=== PATIENT | male | born 1930 | race Caucasian/White ===

== ENCOUNTER 2016-05-22 08:20 | Emergency (ER) | payer MEDICARE, OTHER ==
[2016-05-22 08:26] VITALS: TEMP 97.6; BMI 24.7
--- NOTE | 2016-05-22 09:12 | EDPRACDOC ---
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 PT DENIES LOC, STATES HIS "LEG GAVE WAY" CAUSING HIM TO FALL. Pain Severity: Reports: Moderate Injuries/Pain Location: Reports: head, neck, upper extremity Reason for Fall: Reports: lost balance Loss of Consciousness: no loss of consciousness Modifying Factors: improves with: movement Associated Symptoms (Fall): Reports: headache, neck pain. Denies: abdominal pain, chest pain, confusion, dizziness, lightheadedness, muscle spasms, nausea/ vomiting, ringing in ears, seizures, shortness of breath, slurred speech, trouble walking, vision changes Allergies/Adverse Reactions: Allergies No Known Allergies Allergy (Verified 05/22/16 08:26) Home Medications: Ambulatory Orders Carvedilol [Coreg] 6.25 mg PO BID 11/22/15 Dabigatran Etexilate Mesylate [Pradaxa] 75 mg PO BID 11/22/15 Melatonin/Pyridoxine [Melatonin 5 mg Tablet] 1 tab PO HS 11/22/15 Sertraline HCl [Zoloft] 75 mg PO DAILY 03/14/16 Memantine HCl [Namenda] 10 mg PO BID 04/19/16 Perphenazine [Trilafon] 2 mg PO TID 04/19/16 Rivastigmine Tartrate [Rivastigmine] 1.5 mg PO BID 04/19/16 Magnesium Oxide [Mag-Ox] 400 mg PO TIDWM #100 tablet 04/23/16 Acetaminophen [Tylenol] 650 mg PO QID 05/22/16 Calcium Carbonate/Vitamin D3 [Calcium 500 + Vit D 200 Tablet] 1 tab PO BID 05/22 L. Rhamnosus GG/Inulin [Culturelle Capsule] 1 cap PO DAILY 05/22/16 Metronidazole [Flagyl] 500 mg PO .TID X 14D 05/22/16 Multivitamin W/Iron, Minerals [Multivitamins with Iron] 1 tab PO DAILY 05/22/16 Oxycodone Immediate Release [Oxycodone Immediate Release (OxyIR)] 2.5 mg PO Q8H 05/22/16 Sennosides [Senokot] 2 tab PO QHS 05/22/16 ED Past Medical History - History Reviewed Yes Nurses notes reviewed and agree except as marked - Patient Medical History Neurological History: Reports: Dementia Cardiac History: Reports: Coronary Artery Disease, Atrial Fibrillation, Hypertension, Hypercholesterolemia, Valvular Heart Disease Respiratory History: Reports: COPD, Aspiration Pneumonia, Pneumonia, Emphysema GI/ History: Reports: Renal Failure, Gastroesophageal Reflux, BPH Musculoskeletal History: Reports: Arthritis (OA), Osteoarthritis Psychological History: Reports: Depression Systemic History: Reports: Cancer Surgical History: Reports: Other (penile cancer) - Family Medical History Reports: Hypertension, Cardiac Disorders, Respiratory Disorders - Social Medical History Smoking Status: Never smoker ETOH: None Substance Abuse: None Lives In: [facility] Facility EDM Review of Systems - Review of Systems Constitutional: negative: Chills, Fever Eyes: negative: Blurred Vision, Double Vision Ears: negative: Drainage Throat: negative: Pain Nose: negative: Bleeding Respiratory: negative: Cough, Shortness of Breath, Wheezing Cardiovascular: negative: Chest Pain, Palpitations Gastrointestinal: negative: Diarrhea, Nausea, Pain, Vomiting Genitourinary: negative: Dysuria, Frequency Neurological: Headache. negative: Dizziness, Numbness, Weakness Musculoskeletal: Neck Integumentary: Wound - Physical Exam Constitutional: Alert (Awake), No apparent distress Oriented to: Person, Place Last recorded Vital Signs: Last Vital Signs Temp 97.6 F 05/22/16 08:20 Pulse 80 05/22/16 08:20 Resp 18 05/22/16 08:20 BP 146/69 05/22/16 08:20 Pulse Ox 93 05/22/16 08:20 Oxygen Pulse Oxygen Saturation 93 O2 Device Oxygen Flow Rate Fraction of Inspired Oxygen ( FIO2) - HEENT Head: Laceration (3 CM IRREGULAR LAC MID FOREHEAD, THROUGH SUBCUT TISSUE) Eye Exam: Normal (PERRL, EOMI, Sclera white) Oropharynx: Normal (Pharynx:Moist without exudate,Gums-no swelling) Tympanic Membrane: Normal ENT EAC: Normal TMJ: Normal Nose: Laceration (SUPERFICIAL LAC BRIDGE OF NOSE) Neck: Midline (MILD TENDERNESS) - Respiratory/Cardiovascular Respiratory: Normal - CTA (BBS clear to auscultation without adventitious sounds ) Cardiovascular: Normal (RRR without murmur, gallop or rub) - GI Auscultation: Normal (NABS) Palpation: Normal (Soft,No rebound or guarding, non distended) Tenderness: Non tender Neumann's Sign: Negative - Musculoskeletal Back: Normal (Non-Tender) Extremities: Normal (Normal tone, Pulses 2+ No cyanosis or edema, FROM) - Integumentary Skin: Warm, Dry, Other (SUPERFICIAL SKIN TEAR RIGHT WRIST) Lymphatics: Normal (no adenopathy) - Neurologic Memory Impaired: Normal Motor Function: Normal (Normal tone, Pulses 2+ No cyanosis or edema, FROM) Cranial Nerve: Normal (CN II-X11 intact sensation, strength 5/5) Cerebellar: Normal Mood Description: Normal Perception: Normal ED Injury/Fall Exam - Physical Exam Head Injury: lacerations Extremity Exam: normal range of motion Skin: Warm, Dry - Eli Coma Score Best Eye Response ([place]): (4) open spontaneously Best Verbal Response ([place]): (4) confused conversation Best Motor Response (Eli): (6) obeys commands Eli Total: 14 ED Procedures - Suture/Laceration FOREHEAD Wound Length (cm): 4 Wound's Depth, Shape: linear Wound Explored: clean Irrigated w/ Saline (ccs): 20 Betadine Prep?: Yes Anesthesia: Lidocaine w/ Epi Volume Anesthetic (ccs): 6 Wound Repaired With: Sutures Suture Size/Type: 5:0, nylon Number of Sutures: 12 Layer Closure?: No Sterile Dressing Applied?: Yes - Differential Diagnosis Abrasion, Contusion, Fall, Fracture, ICH - Diagnostic Imaging CT HEAD/C-SPINE Image interpreted by: Radiologist CT HEAD WITHOUT CONTRAST CT CERVICAL SPINE WITHOUT CONTRAST TECHNIQUE: Multidetector CT imaging of the head and cervical spine was performed following the standard protocol without intravenous contrast. Multiplanar CT image reconstructions of the cervical spine were also generated. COMPARISON: 04/19/2016. FINDINGS: The patient was unable to remain motionless for the exam. Small or subtle lesions could be overlooked. CT HEAD FINDINGS No evidence for acute infarction, hemorrhage, mass lesion, hydrocephalus, or extra-axial fluid. Generalized atrophy. Mild to moderate chronic microvascular ischemic change. Calvarium intact. No sinus air-fluid level is detected. There is a large midline forehead scalp hematoma and laceration. No sinus air-fluid level. Except for the scalp hematoma, similar appearance priors. CT CERVICAL SPINE FINDINGS There is no visible cervical spine fracture, traumatic subluxation, prevertebral soft tissue swelling, or intraspinal hematoma. Mild transverse ligament hypertrophy. Degenerative arthrodesis across the C5 through C7 vertebrae anteriorly. Posterior arthrodesis across the C2 and C3 facets. Severe BILATERAL facet arthropathy. No neck masses. Apical pleural thickening. Atherosclerosis. IMPRESSION: No skull fracture or intracranial hemorrhage. No cervical spine fracture or traumatic subluxation. Large midline scalp hematoma in the frontal region with laceration, but no apparent sinus injury. Decision Time to Discharge: 11:26 - Departure Disposition: [facility]-Way Facility Condition: Stable Final Diagnosis: LAC FOREHEAD, 4 CM, SIMPLE Tear of skin of right wrist Qualifiers: Encounter type: initial encounter Qualified Code(s): S61.511A - Laceration without foreign body of right wrist, initial encounter Accidental fall Qualifiers: Encounter type: initial encounter Qualified Code(s): W19.XXXA - Unspecified fall, initial encounter Instructions: Laceration (ED) Education/Counseling Given To: Family Member, Other (SNF STAFF) Education/Counseling Given Regarding: Diagnosis, Treatment, Prognosis, Follow Up Referrals: None,No Provider [Primary Care Provider] - One Week Additional Instructions: Keep wound clean and dry, wash daily with soap and water, cover with antibiotic ointment and clean bandage. Have sutures removed in 10-14 days, use Tylenol or Motrin as needed for pain. Return to the ED for any worsening symptoms or concerns.
[2016-05-22] MEDS ORDERED: Lidocaine 2%-Epinephrine 1:100,000 20ml vial INF ONE (09:13)
--- NOTE | 2016-05-22 10:32 | DIRPT ---
CLINICAL DATA: Found in bathroom floor with laceration to forehead. Fell today. EXAM: CT HEAD WITHOUT CONTRAST CT CERVICAL SPINE WITHOUT CONTRAST TECHNIQUE: Multidetector CT imaging of the head and cervical spine was performed following the standard protocol without intravenous contrast. Multiplanar CT image reconstructions of the cervical spine were also generated. COMPARISON: 04/19/2016. FINDINGS: The patient was unable to remain motionless for the exam. Small or subtle lesions could be overlooked. CT HEAD FINDINGS No evidence for acute infarction, hemorrhage, mass lesion, hydrocephalus, or extra-axial fluid. Generalized atrophy. Mild to moderate chronic microvascular ischemic change. Calvarium intact. No sinus air-fluid level is detected. There is a large midline forehead scalp hematoma and laceration. No sinus air-fluid level. Except for the scalp hematoma, similar appearance priors. CT CERVICAL SPINE FINDINGS There is no visible cervical spine fracture, traumatic subluxation, prevertebral soft tissue swelling, or intraspinal hematoma. Mild transverse ligament hypertrophy. Degenerative arthrodesis across the C5 through C7 vertebrae anteriorly. Posterior arthrodesis across the C2 and C3 facets. Severe BILATERAL facet arthropathy. No neck masses. Apical pleural thickening. Atherosclerosis. IMPRESSION: No skull fracture or intracranial hemorrhage. No cervical spine fracture or traumatic subluxation. Large midline scalp hematoma in the frontal region with laceration, but no apparent sinus injury. Electronically Signed By: Rad Sim M.D. On: 05/22/2016 10:29
[2016-05-22 10:46] VITALS: PULSE 93
[2016-05-22 12:09] VITALS: BP 152/79
== END 2016-05-22 12:10 | disposition home or self-care (01) ==
LOC: ED 08:20
DX: S01.81XA Laceration without foreign body of other part of head, initial encounter (principal); S61.511A Laceration without foreign body of right wrist, initial encounter; W19.XXXA Unspecified fall, initial encounter; F03.90 Unspecified dementia, unspecified severity, without behavioral disturbance, psychotic disturbance, mood disturbance, and anxiety; I10 Essential (primary) hypertension; I48.91 Unspecified atrial fibrillation; E78.00 Pure hypercholesterolemia, unspecified; I25.10 Atherosclerotic heart disease of native coronary artery without angina pectoris; J44.9 Chronic obstructive pulmonary disease, unspecified; K21.9 Gastro-esophageal reflux disease without esophagitis; N40.0 Benign prostatic hyperplasia without lower urinary tract symptoms; Z79.899 Other long term (current) drug therapy
CPT/HCPCS: 12013; 70450; 72125; 99284; J3490; 12002

== ENCOUNTER 2016-06-15 17:00 | Emergency (ER) | payer MEDICARE ==
[2016-06-15 17:10] VITALS: BMI 22.6
--- NOTE | 2016-06-15 18:07 | EDPRACDOC ---
- General Information Chief Complaint: Male Urogenital Problems Stated Complaint: CONFUSION, ?UTI Time Seen by Provider: 06/15/16 17:38 Information Source: Patient Home Medications: Home Medications Carvedilol [Coreg] 6.25 mg PO BID 11/22/15 Dabigatran Etexilate Mesylate [Pradaxa] 75 mg PO BID 11/22/15 Melatonin/Pyridoxine [Melatonin 5 mg Tablet] 1 tab PO HS 11/22/15 Sertraline HCl [Zoloft] 75 mg PO DAILY 03/14/16 Memantine HCl [Namenda] 10 mg PO BID 04/19/16 Perphenazine [Trilafon] 2 mg PO TID 04/19/16 Rivastigmine Tartrate [Rivastigmine] 1.5 mg PO BID 04/19/16 Magnesium Oxide [Mag-Ox] 400 mg PO TIDWM #100 tablet 04/23/16 Acetaminophen [Tylenol] 650 mg PO QID 05/22/16 Calcium Carbonate/Vitamin D3 [Calcium 500 + Vit D 200 Tablet] 1 tab PO BID 05/22 Multivitamin W/Iron, Minerals [Multivitamins with Iron] 1 tab PO DAILY 05/22/16 Oxycodone Immediate Release [Oxycodone Immediate Release (OxyIR)] 2.5 mg PO Q8H 05/22/16 Sennosides [Senokot] 2 tab PO QHS 05/22/16 Quetiapine Fumarate [Seroquel] 200 mg PO QHS #30 tablet 06/15/16 Allergies/Adverse Reactions: Allergies Allergy/AdvReac Type Severity Reaction Status Date / Time No Known Allergies Allergy Verified 06/15/16 17:10 - History of Present 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 PATIENT HAS DEMENTIA BUT SEEMS TO GET WORSE IN THE PRESENCE OF INFECTIONS- USUALLY UTI. NO N/V. PATIENT STATES HE FELL AND STRUCK LEFT KNEE. Symptoms began: Gradually Duration: Since Onset Symptoms Currently: Reports: Still Present Altered Quality: Reports: Decreased Alertness, Confusion Altered Severity: Reports: Mild Recent Symptoms of: Reports: Trauma Relevant History: Reports: Dementia ED Past Medical History - History Reviewed Yes Nurses notes reviewed and agree except as marked Travel Outside of [place] in the Last 3 Months?: No - Patient Medical History Neurological History: Reports: Dementia Cardiac History: Reports: Coronary Artery Disease, Atrial Fibrillation, Hypertension, Hypercholesterolemia, Valvular Heart Disease Respiratory History: Reports: COPD, Aspiration Pneumonia, Pneumonia, Emphysema GI/ History: Reports: Renal Failure, Gastroesophageal Reflux, BPH Musculoskeletal History: Reports: Arthritis (OA), Osteoarthritis Psychological History: Denies: Depression Systemic History: Reports: Cancer Surgical History: Reports: Other (penile cancer) - Family Medical History Reports: Hypertension, Cardiac Disorders, Respiratory Disorders - Social Medical History Smoking Status: Never smoker ETOH: None Substance Abuse: None Lives With: Family Lives In: Home EDM Review of Systems - Review of Systems ROS Negative Except as Marked: Yes All systems reviewed and were negative except as marked Constitutional: Fatigue. negative: Chills, Fever, Loss of Appetite, Weakness Eyes: No Symptoms Reported. negative: Redness, Blurred Vision, Double Vision, Discharge, Pain, Light Sensitive, Photophobia Ears: No Symptoms Reported. negative: Pain, Hearing Loss, Drainage, Ear Pulling Throat: No Symptoms Reported. negative: Pain, Swelling Nose: No Symptoms Reported. negative: Congestion, Bleeding, Discharge, Injection, Swelling, Deformity, Ecchymosis, Tender, Abrasion, Laceration Mouth: No Symptoms Reported. negative: Pain, Drooling Respiratory: No Symptoms Reported. negative: Cough, Brassy Cough, Barky Cough, Shortness of Breath, Wheezing, Hemoptysis Cardiovascular: No Symptoms Reported. negative: Chest Pain, Palpitations, Syncope, Edema, Orthopnea, PND, Skin Mottling, Cyanosis Gastrointestinal: No Symptoms Reported. negative: Pain, Constipation, Nausea, Vomiting, Diarrhea, Melena, Formula Intolerance Genitourinary: No Symptoms Reported. negative: Dysuria, Hematuria, Frequency, Discharge, Bleeding, Testicular Pain, Neurological: No Symptoms Reported. negative: Headache, Dizziness, Seizure, Numbness, Weakness, Speech Difficulty, Gait Difficulty Musculoskeletal: Knee (LEFT). negative: Arm, Ankle, Back, Chestwall, Elbow, Forearm, Femur, Foot, Hand, Hip, Leg, Neck, Pelvis, Ribs, Shoulder, Wrist Integumentary: No Symptoms Reported. negative: Itching, Rash, Bruising, Wound Allergic/Immunologic: No Symptoms Reported. negative: Hives, Itching Hematologic: No Symptoms Reported. negative: Lymphadenopathy, Easy Bruising, Easy Bleeding Endocrine: No Symptoms Reported. negative: Weight Gain, Weight Loss Psychiatric: No Symptoms Reported. negative: Anxiety, Depression, Hallucinations, Insomnia, Suicidal - Physical Exam Constitutional: Alert (Awake), Confused Oriented to: Person Last recorded Vital Signs: Last Vital Signs Temp 98.7 F 06/15/16 17:06 Pulse 93 06/15/16 17:06 Resp 18 06/15/16 17:06 BP 134/79 06/15/16 17:06 Pulse Ox 98 06/15/16 17:06 Oxygen Pulse Oxygen Saturation 98 O2 Device Room Air Oxygen Flow Rate Fraction of Inspired Oxygen ( FIO2) - HEENT Head: Normal ( normocephalic) Eye Exam: Normal (PERRL, EOMI, Sclera white) Oropharynx: Normal (Pharynx:Moist without exudate,Gums-no swelling) Tympanic Membrane: Normal ENT EAC: Normal TMJ: Normal Nose: No Symptoms Reported (septum midline) Neck: Normal (FROM, trachea at midline) - Respiratory/Cardiovascular Respiratory: Normal - CTA (BBS clear to auscultation without adventitious sounds ) Cardiovascular: Normal (RRR without murmur, gallop or rub) - GI Auscultation: Normal (NABS) Palpation: Normal (Soft,No rebound or guarding, non distended) Tenderness: Non tender Neumann's Sign: Negative - Bladder: Normal - Musculoskeletal Back: Normal (Non-Tender) Extremities: Normal (Normal tone, Pulses 2+ No cyanosis or edema, FROM) - Integumentary Skin: Normal, Warm, Dry Lymphatics: Normal (no adenopathy) - Neurologic Memory Impaired: Short-term Motor Function: Normal (Normal tone, Pulses 2+ No cyanosis or edema, FROM) Cranial Nerve: Normal (CN II-X11 intact sensation, strength 5/5) Cerebellar: Normal Mood Description: Normal Perception: Normal - Results 06/15/16 18:32 06/15/16 18:32 - EKG EKG #1 EKG Time: 17:46 -: Yes EKG interpreted by me Rate: bpm: 88 [place]: LAD Rhythm: Afib, PVCs Block: LBBB Hypertrophy: None ST: Normal Decision Time to Discharge: 20:34 - Departure Yes I personally saw and evaluated the patient. Disposition: Home Condition: Good Final Diagnosis: Advanced dementia Education/Counseling Given To: Patient Education/Counseling Given Regarding: Diagnosis, Treatment, Prognosis Referrals: Curtis Mcclendon MD [Primary Care Provider] - One Week Prescriptions: New Quetiapine Fumarate [Seroquel] 200 mg PO QHS #30 tablet No Action Melatonin/Pyridoxine [Melatonin 5 mg Tablet] 1 tab PO HS Carvedilol [Coreg] 6.25 mg PO BID Dabigatran Etexilate Mesylate [Pradaxa] 75 mg PO BID Sertraline HCl [Zoloft] 75 mg PO DAILY Rivastigmine Tartrate [Rivastigmine] 1.5 mg PO BID Memantine HCl [Namenda] 10 mg PO BID Perphenazine [Trilafon] 2 mg PO TID Magnesium Oxide [Mag-Ox] 400 mg PO TIDWM #100 tablet Oxycodone Immediate Release [Oxycodone Immediate Release (OxyIR)] 2.5 mg PO Q8H Calcium Carbonate/Vitamin D3 [Calcium 500 + Vit D 200 Tablet] 1 tab PO BID Acetaminophen [Tylenol] 650 mg PO QID Sennosides [Senokot] 2 tab PO QHS Multivitamin W/Iron, Minerals [Multivitamins with Iron] 1 tab PO DAILY - Physician Consulted Other Time Called: 20:36 Provider Called: Anabel Mcintyre ([facility]) Time [employer]aker Returned Call: 20:37
--- NOTE | 2016-06-15 18:22 | DIRPT ---
CLINICAL DATA: Status post fall today. Left knee pain. Initial encounter. EXAM: LEFT KNEE - COMPLETE 4+ VIEW COMPARISON: Plain films left knee 04/19/2016. FINDINGS: No acute bony or joint abnormality is identified. Advanced tricompartmental osteoarthritis is again seen. Chondrocalcinosis is also again seen. No joint effusion. IMPRESSION: No acute abnormality. Advanced tricompartmental osteoarthritis. Electronically Signed By: Hollis Freeman M.D. On: 06/15/2016 18:20
--- NOTE | 2016-06-15 18:24 | DIRPT ---
CLINICAL DATA: Confusion. EXAM: CHEST 1 VIEW COMPARISON: 04/21/2016. FINDINGS: Low volume film. Basilar atelectasis noted. The cardio pericardial silhouette is enlarged. Cardiomediastinal contours are stable. Old left clavicle fracture again noted. IMPRESSION: Stable. No new or progressive findings. Electronically Signed By: Giancarlo Zee M.D. On: 06/15/2016 18:21
--- NOTE | 2016-06-15 18:26 | DIRPT ---
CLINICAL DATA: Altered mental status. EXAM: CT HEAD WITHOUT CONTRAST TECHNIQUE: Contiguous axial images were obtained from the base of the skull through the vertex without intravenous contrast. COMPARISON: 05/22/2016. FINDINGS: There is no evidence for acute hemorrhage, hydrocephalus, mass lesion, or abnormal extra-axial fluid collection. No definite CT evidence for acute infarction. Diffuse loss of parenchymal volume is consistent with atrophy. Patchy low attenuation in the deep hemispheric and periventricular white matter is nonspecific, but likely reflects chronic microvascular ischemic demyelination. The visualized paranasal sinuses and mastoid air cells are clear. IMPRESSION: Stable. No acute intracranial abnormality. Atrophy with chronic small vessel white matter ischemic disease. Electronically Signed By: Giancarlo Zee M.D. On: 06/15/2016 18:24
[2016-06-15 18:37] LABS: AUTOMATED BASOPHIL 0.3 % (0-2); AUTOMATED EOSINOPHIL 3.9 % (0-5); AUTOMATED LYMPH 28.1 % (17-44); AUTOMATED MONOCYTE 9.8 % (3-10); AUTOMATED NEUTROPHIL 57.9 % (45-76); MPV 8.2 fL (7.4-10.4)
[2016-06-15 18:53] LABS: PARTIAL THROMB. TIME 33.8 SEC (22-35); PT-INR 1.2
[2016-06-15 19:00] LABS: BLOOD UREA NITROGEN 28 MG/DL (9-20); CALC CORRECTED 11.6 MG/DL (8.4-10.2); CALCIUM 10.8 MG/DL (8.4-10.2); CALCULATED OSMOLALITY 273 MOs/Kg (270-290); CHLORIDE 104 mEq/L (98-107); GLUCOSE 110 MG/DL (70-99); SODIUM LEVEL 138 mEq/L (137-146); TOTAL PROTEIN 6.4 G/DL (6.3-8.2)
[2016-06-15 19:39] LABS: LEUKOCYTES/URINE NEG (NEGATIVE); NITRITE/URINE NEG (NEGATIVE); URINE OCCULT BLOOD NEG (NEG/TRACE)
[2016-06-15 21:16] VITALS: BP 126/70; PULSE 86; TEMP 98
== END 2016-06-15 21:11 | disposition home or self-care (01) ==
LOC: ED 17:00
DX: F03.90 Unspecified dementia, unspecified severity, without behavioral disturbance, psychotic disturbance, mood disturbance, and anxiety (principal); S89.92XA Unspecified injury of left lower leg, initial encounter; W19.XXXA Unspecified fall, initial encounter; I25.10 Atherosclerotic heart disease of native coronary artery without angina pectoris; I48.91 Unspecified atrial fibrillation; I10 Essential (primary) hypertension; E78.00 Pure hypercholesterolemia, unspecified; J44.9 Chronic obstructive pulmonary disease, unspecified; K21.9 Gastro-esophageal reflux disease without esophagitis; N40.0 Benign prostatic hyperplasia without lower urinary tract symptoms; Z79.899 Other long term (current) drug therapy
CPT/HCPCS: 36415; 70450; 71010; 80053; 81001; 84484; 85025; 85610; 85730; 87086; 93005; 99284

== ENCOUNTER 2016-06-18 16:38 | Emergency (ER) | payer MEDICARE, MEDICAID ==
[2016-06-18 16:39] VITALS: BMI 22.6
[2016-06-18] MEDS ORDERED: NS 1,000 ML IV ONE (17:08)
[2016-06-18 17:13] VITALS: TEMP 98.4
--- NOTE | 2016-06-18 17:33 | DIRPT ---
CLINICAL DATA: Weakness, low back pain EXAM: PORTABLE CHEST 1 VIEW COMPARISON: 06/15/2016 FINDINGS: Mild patchy right lower lobe opacity, likely atelectasis, less likely pneumonia. No pleural effusion or pneumothorax. The heart is normal in size. IMPRESSION: Mild patchy right lower lobe opacity, likely atelectasis, less likely pneumonia. Electronically Signed By: Miguel Angel Waller M.D. On: 06/18/2016 17:30
[2016-06-18 17:39] LABS: AUTOMATED BASOPHIL 0.3 % (0-2); AUTOMATED EOSINOPHIL 3.3 % (0-5); AUTOMATED LYMPH 17.8 % (17-44); AUTOMATED NEUTROPHIL 71.6 % (45-76); MPV 8.3 fL (7.4-10.4)
[2016-06-18 17:53] LABS: BLOOD UREA NITROGEN 38 MG/DL (9-20); CALC CORRECTED 11.6 MG/DL (8.4-10.2); CALCIUM 10.1 MG/DL (8.4-10.2); CALCULATED OSMOLALITY 276 MOs/Kg (270-290); CHLORIDE 104 mEq/L (98-107); GLUCOSE 120 MG/DL (70-99); PARTIAL THROMB. TIME 30.4 SEC (22-35); PT-INR 1.3; SODIUM LEVEL 138 mEq/L (137-146); TOTAL PROTEIN 5.5 G/DL (6.3-8.2)
[2016-06-18 18:02] LABS: RBC/URINE 0-2 (0-2)
[2016-06-18 18:04] LABS: URINE OCCULT BLOOD NEG (NEG/TRACE)
[2016-06-18 18:05] LABS: LEUKOCYTES/URINE 1+ (NEGATIVE); NITRITE/URINE POS (NEGATIVE)
[2016-06-18] MEDS ORDERED: CEFTRIAXONE 1 GM in D5W 100 ML IV ONE (18:29)
--- NOTE | 2016-06-18 19:38 | EDPRACDOC ---
[id number] Time Seen by Provider: 06/18/16 17:03 Information Source: Patient Mode of Arrival: Ambulance Home Medications: Home Medications Carvedilol [Coreg] 6.25 mg PO BID 11/22/15 Dabigatran Etexilate Mesylate [Pradaxa] 75 mg PO BID 11/22/15 Melatonin/Pyridoxine [Melatonin 5 mg Tablet] 1 tab PO HS 11/22/15 Sertraline HCl [Zoloft] 75 mg PO DAILY 03/14/16 Memantine HCl [Namenda] 10 mg PO BID 04/19/16 Perphenazine [Trilafon] 2 mg PO TID 04/19/16 Rivastigmine Tartrate [Rivastigmine] 1.5 mg PO BID 04/19/16 Magnesium Oxide [Mag-Ox] 400 mg PO TIDWM #100 tablet 04/23/16 Acetaminophen [Tylenol] 650 mg PO QID 05/22/16 Calcium Carbonate/Vitamin D3 [Calcium 500-Vit D3 200 Tablet] 1 tab PO BID Multivitamin W/Iron, Minerals [Multivitamins with Iron] 1 tab PO DAILY 05/22/16 Oxycodone Immediate Release [Oxycodone Immediate Release (OxyIR)] 2.5 mg PO Q8H 05/22/16 Sennosides [Senokot] 2 tab PO QHS 05/22/16 Quetiapine Fumarate [Seroquel] 200 mg PO QHS #30 tablet 06/15/16 Sulfamethoxazole/Trimethoprim [Bactrim Ds Tablet] 1 tab PO BID #14 tab 06/18/16 Allergies/Adverse Reactions: Allergies Allergy/AdvReac Type Severity Reaction Status Date / Time No Known Allergies Allergy Verified 06/15/16 17:10 - 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 HE WAS SEEN 3 DAYS AGO FOR SIMILAR. FAMILY REPORTS HE IS LEANING MORE TO HIS LEFT. ED Past Medical History - History Reviewed Yes Nurses notes reviewed and agree except as marked - Patient Medical History Neurological History: Reports: Dementia Cardiac History: Reports: Coronary Artery Disease, Atrial Fibrillation, Hypertension, Hypercholesterolemia, Valvular Heart Disease Respiratory History: Reports: COPD, Aspiration Pneumonia, Pneumonia, Emphysema GI/ History: Reports: Renal Failure, Gastroesophageal Reflux, BPH Musculoskeletal History: Reports: Arthritis (OA), Osteoarthritis Psychological History: Denies: Depression Systemic History: Reports: Cancer Surgical History: Reports: Other (penile cancer) - Family Medical History Reports: Hypertension, Cardiac Disorders, Respiratory Disorders - Social Medical History Smoking Status: Never smoker Lives With: Family Lives In: Home EDM Review of Systems - Review of Systems ROS Negative Except as Marked: Yes All systems reviewed and were negative except as marked - Physical Exam Last recorded Vital Signs: Last Vital Signs Temp 98.4 F 06/18/16 17:00 Pulse 77 06/18/16 18:58 Resp 20 06/18/16 18:58 BP 121/60 06/18/16 18:58 Pulse Ox 95 06/18/16 18:58 Oxygen Pulse Oxygen Saturation 95 O2 Device Room Air Oxygen Flow Rate Fraction of Inspired Oxygen ( FIO2) - Results 06/18/16 17:20 06/18/16 17:20 WBC 10.6 xk/uL (3.8-10.8) 06/18/16 17:20 RBC 3.46 xM/uL (4.70-6.10) L 06/18/16 17:20 Hgb 10.2 g/dL (14.0-18.0) L D 06/18/16 17:20 Hct 30.6 % (42-52) L 06/18/16 17:20 MCV 88 fL (80-94) 06/18/16 17:20 MCH 29.4 pg (27-32) 06/18/16 17:20 MCHC 33.2 g/dl (33-36) 06/18/16 17:20 RDW 17.0 % (11.5-14.5) H 06/18/16 17:20 Plt Count 154 xk/uL (130-400) 06/18/16 17:20 MPV 8.3 fL (7.4-10.4) 06/18/16 17:20 Neut % (Auto) 71.6 % (45-76) 06/18/16 17:20 Lymph % (Auto) 17.8 % (17-44) 06/18/16 17:20 [place] % (Auto) 7.0 % (3-10) 06/18/16 17:20 Eos % (Auto) 3.3 % (0-5) 06/18/16 17:20 Baso % (Auto) 0.3 % (0-2) 06/18/16 17:20 Absolute Neuts (auto) 7.53 xk/uL (1.7-8.2) 06/18/16 17:20 Absolute Lymphs (auto) 1.80 xk/uL (0.65-4.75) 06/18/16 17:20 PT 13.6 SEC (9.2-11.2) H 06/18/16 17:20 INR 1.3 06/18/16 17:20 APTT 30.4 SEC (22-35) 06/18/16 17:20 Sodium 138 mEq/L (137-146) 06/18/16 17:20 Potassium 3.7 mEq/L (3.5-5.1) 06/18/16 17:20 Chloride 104 mEq/L (98-107) 06/18/16 17:20 Carbon Dioxide 30 mMOL/L (22-33) 06/18/16 17:20 Anion Gap 8 mEq/L (8-16) 06/18/16 17:20 BUN 38 MG/DL (9-20) H 06/18/16 17:20 Creatinine 1.20 MG/DL (0.66-1.25) 06/18/16 17:20 Estimated GFR (MDRD) 58 mL/min (>=60) L 06/18/16 17:20 Glucose 120 MG/DL (70-99) H 06/18/16 17:20 Calculated Osmolality 276 MOs/Kg (270-290) 06/18/16 17:20 Lactic Acid 1.0 mEq/L (0.7-2.1) 06/18/16 17:20 Calcium 10.1 MG/DL (8.4-10.2) 06/18/16 17:20 Corrected Calcium 11.6 MG/DL (8.4-10.2) H 06/18/16 17:20 Total Bilirubin 0.5 MG/DL (0.2-1.3) 06/18/16 17:20 AST 30 IU/L (17-59) 06/18/16 17:20 ALT 37 IU/L (21-72) 06/18/16 17:20 Alkaline Phosphatase 64 IU/L (50-160) 06/18/16 17:20 Creatine Kinase 130 IU/L (55-170) 06/18/16 17:20 Total Protein 5.5 G/DL (6.3-8.2) L 06/18/16 17:20 Albumin 2.5 G/DL (3.5-5.0) L 06/18/16 17:20 Urine Color Dark yellow 06/18/16 17:46 Urine Clarity Clear 06/18/16 17:46 Urine pH 5.0 (5.0-8.0) 06/18/16 17:46 Ur Specific [place] 1.025 (1.003-1.035) 06/18/16 17:46 Urine Protein Neg (NEG/TRACE) 06/18/16 17:46 Urine Glucose (UA) Neg (NEGATIVE) 06/18/16 17:46 Urine Ketones Neg (NEGATIVE) 06/18/16 17:46 Urine Occult Blood Neg (NEG/TRACE) 06/18/16 17:46 Urine Nitrite Pos (NEGATIVE) H 06/18/16 17:46 Urine Bilirubin Neg (NEGATIVE) 06/18/16 17:46 Urine Urobilinogen 0.2 MG/DL (0-1) 06/18/16 17:46 Ur Leukocyte Esterase 1+ (NEGATIVE) H 06/18/16 17:46 Urine RBC 0-2 (0-2) 06/18/16 17:46 Urine WBC 10-20 (0-2) H 06/18/16 17:46 Ur Epithelial Cells Occ 06/18/16 17:46 Urine Bacteria 4+ (NEG/FEW) H 06/18/16 17:46 Urine Mucus Sm amt (NEG/OCC) 06/18/16 17:46 Lab Results 06/18/16 06/18/16 06/18/16 17:46 17:20 17:20 WBC RBC Hgb Hct MCV MCH MCHC RDW Plt Count MPV Neut % (Auto) Lymph % (Auto) [place] % (Auto) Eos % (Auto) Baso % (Auto) Absolute Neuts (auto) Absolute Lymphs (auto) PT 13.6 H INR 1.3 APTT 30.4 Sodium Potassium Chloride Carbon Dioxide Anion Gap BUN Creatinine Estimated GFR (MDRD) Glucose Calculated Osmolality Lactic Acid Calcium Corrected Calcium Total Bilirubin AST ALT Alkaline Phosphatase Creatine Kinase 130 Total Protein Albumin Urine Color Dark yellow Urine Clarity Clear Urine pH 5.0 Ur Specific [place] 1.025 Urine Protein Neg Urine Glucose (UA) Neg Urine Ketones Neg Urine Occult Blood Neg Urine Nitrite Pos H Urine Bilirubin Neg Urine Urobilinogen 0.2 Ur Leukocyte Esterase 1+ H Urine RBC 0-2 Urine WBC 10-20 H Ur Epithelial Cells Occ Urine Bacteria 4+ H Urine Mucus Sm amt 06/18/16 06/18/16 06/18/16 17:20 17:20 17:20 WBC 10.6 RBC 3.46 L Hgb 10.2 L D Hct 30.6 L MCV 88 MCH 29.4 MCHC 33.2 RDW 17.0 H Plt Count 154 MPV 8.3 Neut % (Auto) 71.6 Lymph % (Auto) 17.8 [place] % (Auto) 7.0 Eos % (Auto) 3.3 Baso % (Auto) 0.3 Absolute Neuts (auto) 7.53 Absolute Lymphs (auto) 1.80 PT INR APTT Sodium 138 Potassium 3.7 Chloride 104 Carbon Dioxide 30 Anion Gap 8 BUN 38 H Creatinine 1.20 Estimated GFR (MDRD) 58 L Glucose 120 H Calculated Osmolality 276 Lactic Acid 1.0 Calcium 10.1 Corrected Calcium 11.6 H Total Bilirubin 0.5 AST 30 ALT 37 Alkaline Phosphatase 64 Creatine Kinase Total Protein 5.5 L Albumin 2.5 L Urine Color Urine Clarity Urine pH Ur Specific [place] Urine Protein Urine Glucose (UA) Urine Ketones Urine Occult Blood Urine Nitrite Urine Bilirubin Urine Urobilinogen Ur Leukocyte Esterase Urine RBC Urine WBC Ur Epithelial Cells Urine Bacteria Urine Mucus - EKG EKG #1 EKG Time: 17:20 -: Yes EKG interpreted by me Rate: bpm: 89 Rhythm: NSR, PVCs Block: LBBB ST: Nonsp Decision Time to Discharge: 19:58 - Departure Yes I personally saw and evaluated the patient. Disposition: Home Condition: Stable Final Diagnosis: Urinary tract infection Instructions: Urinary Tract Infection in Men (ED), Dysuria, Weakness (General) Education/Counseling Given To: Patient, Family Member Education/Counseling Given Regarding: Diagnosis, Treatment, Prognosis, Follow Up Referrals: None,No Provider [Primary Care Provider] - Call for Appointment Prescriptions: New Sulfamethoxazole/Trimethoprim [Bactrim Ds Tablet] 1 tab PO BID #14 tab Continue Melatonin/Pyridoxine [Melatonin 5 mg Tablet] 1 tab PO HS Carvedilol [Coreg] 6.25 mg PO BID Dabigatran Etexilate Mesylate [Pradaxa] 75 mg PO BID Sertraline HCl [Zoloft] 75 mg PO DAILY Rivastigmine Tartrate [Rivastigmine] 1.5 mg PO BID Memantine HCl [Namenda] 10 mg PO BID Perphenazine [Trilafon] 2 mg PO TID Magnesium Oxide [Mag-Ox] 400 mg PO TIDWM #100 tablet Oxycodone Immediate Release [Oxycodone Immediate Release (OxyIR)] 2.5 mg PO Q8H Calcium Carbonate/Vitamin D3 [Calcium 500-Vit D3 200 Tablet] 1 tab PO BID Acetaminophen [Tylenol] 650 mg PO QID Sennosides [Senokot] 2 tab PO QHS Multivitamin W/Iron, Minerals [Multivitamins with Iron] 1 tab PO DAILY Quetiapine Fumarate [Seroquel] 200 mg PO QHS #30 tablet
[2016-06-18 20:26] VITALS: BP 126/64; PULSE 78
== END 2016-06-18 20:04 | disposition home or self-care (01) ==
LOC: ED 16:38
DX: N39.0 Urinary tract infection, site not specified (principal)
CPT/HCPCS: 36415; 71010; 80053; 81001; 82550; 83605; 85025; 85610; 85730; 87040; 87077; 87086; 87186; 93005; 96361; 96365; 99283; J0696; J7060